=== PATIENT | female | born 1955 | race Caucasian/White ===

== ENCOUNTER 2024-04-19 17:44 | Inpatient (IN) | payer MEDICAID, OTHER ==
[~2024-04-19] VITALS: Ht 165.1 cm; Wt 67.2 kg
[~2024-04-19 17:44] MED LIST: ACET160S PO; ALBU6.7H15 INH; ANAS1TAB49 PO; APIX5TAB MT; ASCO500C18 MT; ASPI-1497 PO; ATOR40TA70 MT; CARV3.1242 MT; DOCU-138 MT; DOCU-155 MT; FURO40TA5 MT; GABA-534 MT; GLUC1KIT3 SQ; INSU100V51; IPRA5POW MC; MULT-379 MT; OMEP20CA14 MT; POVI30SO OP; SITA50TA3 MT
[2024-04-19] MEDS ORDERED: CEFEPIME 1GM IN DEXT 5% 50ML IV ONE (18:00)
[2024-04-19] MEDS ORDERED: VANCOMYCIN 1,250 MG in DEXT 5% WATER 250 ML IV SCH (18:00)
[2024-04-19 18:21] LABS: BASOPHILS % 0.1 % (0.0-2.0); DIFFERENTIAL COMMENT 0; EOSINOPHILS % 3.1 % (0.0-5.0); LYMPHOCYTES % 8.1 % (20.0-50.0); MEAN CORPUSCULAR HEMOGLOBIN 28.9 pg (28.0-32.0); MEAN CORPUSCULAR HGB CONC 30.8 g/dL (31.0-37.0); MEAN CORPUSCULAR VOLUME 93.8 fL (81.0-99.0); MEAN PLATELET VOLUME 8.6 fl (7.4-10.4); MONOCYTES % 4.9 % (2.0-8.0); NEUTROPHILS % 83.8 % (40.0-76.0); PLATELET 360 x1000/uL (130-400); RED BLOOD CELL COUNT 1.57 mill/uL (4.2-5.4); RED CELL DISTRIBUTION WIDTH 15.8 % (11.6-14.6); WHITE BLOOD COUNT 16.5 x1000/uL (4.5-11.0)
[2024-04-19] MEDS: CEFEPIME 1GM/50ML 50 ML IV NR (18:23)
[2024-04-19 18:26] LABS: HEMOGLOBIN. 4.5 g/dL (12.0-16.0); POTASSIUM 3.7 mEq/L (3.5-5.1)
[2024-04-19 18:27] LABS: CALCIUM 8.2 mg/dL (8.7-10.4); HEMATOCRIT. 14.7 % (36.0-48.0)
[2024-04-19] MEDS: SODIUM CHLORIDE 0.9% 1000ML BAG (SEPSIS BOLUS) IV ONE (18:29)
[2024-04-19 18:31] LABS: PROTHROMBIN TIME 11.6 sec (9.6-11.0)
[2024-04-19 18:33] VITALS: PULSE 118; RESP 24; O2SAT 98
[2024-04-19 18:36] LABS: CREATININE 2.5 mg/dL (0.6-1.0)
[2024-04-19] MEDS: NOREPINEPHRINE 8MG/250ML PMX 250 ML IV ONE (19:14)
[2024-04-19] MEDS: VANCOMYCIN 1.25GM PMX (XELLIA) 250 ML IV NR (19:14)
[2024-04-19 20:06] VITALS: PULSE 119; RESP 20; O2SAT 100
[2024-04-19 22:15] VITALS: PULSE 120; RESP 20; O2SAT 100
[2024-04-20] VITALS (108 sets, daily range): BP systolic 83–154; BP diastolic 37–86; PULSE 101–129; RESP 0–27; TEMP 36.61404–37.05852; O2SAT 10–100
[2024-04-20 02:19] LABS: BG BASE EXCESS -3.7 mmol/L (-2.0-2.0); BG DEOXYHEMOGLOBIN 0.6 % (0.0-5.0); BG FRACTION INSPIRED OXYGEN 40; BG HCO3 ACT 20.4 mmol/L (22.0-26.0); BG METHEMOGLOBIN 0.3 % (0.0-1.5); BG OXYGEN SATURATION 99.4 % (92.0-98.5); BG OXYHEMOGLOBIN 98.1 % (94.0-97.0); BG PCO2 32.1 mmHg (35.0-45.0); BG PO2 138.1 mmHg (75.0-100.0); BG SAMPLE SITE LEFT RADIAL; BG TOTAL HEMOGLOBIN 7.1 g/dL (12.0-18.0); BG TOTAL RESPIRATORY RATE 21 b/min; BG VENT MODE VENT - AC
[2024-04-20] MEDS ORDERED: DEXTROSE 50% WATER 50ML SYRINGE IV PRN ×2 (05:30→15:30)
[2024-04-20] MEDS: BLOOD SUGAR DIAGNOSTIC STRIP TEST SCH ×2 (06:46→17:27)
[2024-04-20] MEDS: DEXT 5%/0.9% NACL 1,000 ML IV SCH ×2 (06:50→18:42)
[2024-04-20] MEDS: PIPERACILLIN/TAZO 3.375G/50ML 50 ML IV SCH (06:50)
[2024-04-20] MEDS: INSULIN LISPRO 100 UNITS/ML SUBCUT SCH ×2 (07:00→18:18)
[2024-04-20] MEDS: PANTOPRAZOLE SODIUM 40 MG/VIAL IV SCH (08:23)
[2024-04-20 09:15] LABS: CLARITY URINE CLOUDY (CLEAR); COLOR URINE YELLOW (YELLOW); GLUCOSE URINE 1+ (NEGATIVE); KETONES URINE 1+ (NEGATIVE); LEUKOCYTE ESTERASE URINE 3+ (NEGATIVE); NITRITE URINE NEGATIVE (NEGATIVE); OCCULT BLOOD URINE 2+ (NEGATIVE); PH URINE 7.5 (4.5-8.0); PROTEIN URINE 2+ (NEGATIVE); SPECIFIC GRAVITY URINE 1.014 (1.005-1.030); UROBILINOGEN URINE 0.2 E.U./dL (0.2-1.0)
[2024-04-20 09:23] LABS: WBC URINE 50-100 /hpf (0-2)
[2024-04-20 09:24] LABS: BACTERIA URINE 2+; YEAST URINE NONE SEEN
[2024-04-20 09:26] LABS: SQUAMOUS EPITHELIAL CELL URINE NONE SEEN /lpf (RARE/1+)
[2024-04-20 10:12] LABS: HEMATOCRIT 28.3 % (36.0-48.0); HEMOGLOBIN 9.2 g/dL (12.0-16.0); MEAN CORPUSCULAR HEMOGLOBIN 29.4 pg (28.0-32.0); MEAN CORPUSCULAR HGB CONC 32.4 g/dL (31.0-37.0); MEAN CORPUSCULAR VOLUME 90.9 fL (81.0-99.0); PLATELET 356 x1000/uL (130-400); RED BLOOD CELL COUNT 3.11 mill/uL (4.2-5.4); RED CELL DISTRIBUTION WIDTH 16.3 % (11.6-14.6); WHITE BLOOD COUNT 16.1 x1000/uL (4.5-11.0)
[2024-04-20 10:21] LABS: POTASSIUM 3.4 mEq/L (3.5-5.1)
[2024-04-20 10:23] LABS: CALCIUM 8.3 mg/dL (8.7-10.4)
[2024-04-20 10:27] LABS: CREATININE 2.3 mg/dL (0.6-1.0)
[2024-04-20 10:29] LABS: ALBUMIN 2.8 g/dL (3.2-4.8)
[2024-04-20] MEDS: NOREPINEPHRINE 8MG/250ML PMX 250 ML IV PRN (10:34)
[2024-04-20] MEDS: CHLORHEXIDINE GLUCONATE 4% EXTERNAL USE TOP SCH (13:38)
[2024-04-20 16:11] LABS: IRON 45 ug/dL (50-170)
[2024-04-20 16:13] LABS: TOTAL IRON BINDING CAPACITY 149 ug/dl (250-425)
[2024-04-20] MEDS ORDERED: INSULIN LISPRO 100 UNITS/ML SUBCUT SCH (18:00)
[2024-04-21] VITALS (99 sets, daily range): BP systolic 87–135; BP diastolic 39–88; PULSE 106–136; RESP 12–25; TEMP 36.72516–37.44744; O2SAT 97–100
[2024-04-21 05:33] LABS: CALCIUM 8.2 mg/dL (8.7-10.4)
[2024-04-21 05:46] LABS: POTASSIUM 2.4 mEq/L (3.5-5.1)
[2024-04-21] MEDS ORDERED: KCL 20MEQ/100ML PREMIX 100 ML IV ONE ×2 (06:15)
[2024-04-21] MEDS ORDERED: POTASSIUM CHLORIDE 20 MEQ in DEXT 5% WATER 90 ML IV ONE (06:15)
[2024-04-21] MEDS: POTASSIUM CHLORIDE 60 MEQ in DEXT 5% WATER 470 ML IV SCH (07:04)
[2024-04-21] MEDS: MAGNESIUM 1 G PREMIX 100 ML IV NR (11:51)
[2024-04-21] MEDS: DIPHENHYDRAMINE 50MG/ML VIAL IV NR (16:26)
[2024-04-21] MEDS: INSULIN LISPRO 100 UNITS/ML SUBCUT SCH (16:28)
[2024-04-21 16:58] LABS: CALCIUM 7.8 mg/dL (8.7-10.4)
[2024-04-21 17:03] LABS: CREATININE 1.7 mg/dL (0.6-1.0)
[2024-04-21 17:08] LABS: FERRITIN 1156 ng/mL (10-291); FOLIC ACID (FOLATE) SERUM 12.25 ng/mL (>5.38)
[2024-04-21 17:09] LABS: VITAMIN B12 SERUM 1413 pg/mL (211-911)
[2024-04-21] MEDS: KCL 20MEQ/100ML PREMIX 100 ML IV SCH (17:21)
[2024-04-21] MEDS: VANCOMYCIN 750MG/150ML (BAXTER) IV NR (20:33)
[2024-04-21] MEDS ORDERED: ZINC OXIDE 20% OINT 30GM TOP PRN (21:00)
[2024-04-21] MEDS: ACETAMINOPHEN 650MG/20.3ML UDC PO PRN (21:21)
[2024-04-21] MEDS: INSULIN GLARGINE 100 UNITS/ML SUBCUT SCH (21:54)
[2024-04-22] VITALS (72 sets, daily range): BP systolic 74–123; BP diastolic 32–69; PULSE 112–146; RESP 11–27; TEMP 36.78072–38.3364; O2SAT 98–100
[2024-04-22] MEDS: AZITHROMYCIN 500MG/250ML 250 ML IV NR (00:10)
[2024-04-22 04:51] LABS: HEMATOCRIT. 25.2 % (36.0-48.0); MEAN CORPUSCULAR HEMOGLOBIN 29.3 pg (28.0-32.0); MEAN CORPUSCULAR HGB CONC 31.7 g/dL (31.0-37.0); MEAN CORPUSCULAR VOLUME 92.4 fL (81.0-99.0); MEAN PLATELET VOLUME 7.8 fl (7.4-10.4); PLATELET 375 x1000/uL (130-400); RED BLOOD CELL COUNT 2.73 mill/uL (4.2-5.4); RED CELL DISTRIBUTION WIDTH 17.3 % (11.6-14.6); WHITE BLOOD COUNT 17.1 x1000/uL (4.5-11.0)
[2024-04-22 04:55] LABS: CARBON DIOXIDE 19 mEq/L (21-32); CHLORIDE 122 mEq/L (98-107); POTASSIUM 3.5 mEq/L (3.5-5.1); SODIUM 151 mEq/L (136-145)
[2024-04-22 04:56] LABS: CALCIUM 8.1 mg/dL (8.7-10.4)
[2024-04-22 05:00] LABS: CREATININE 1.6 mg/dL (0.6-1.0); GLUCOSE 235 mg/dL (70-105)
[2024-04-22 05:01] LABS: UREA NITROGEN BLOOD 74 mg/dL (9-23)
[2024-04-22 05:03] LABS: PHOSPHORUS 2.8 mg/dL (2.5-4.9)
[2024-04-22 05:33] LABS: DIFFERENTIAL COMMENT 1
[2024-04-22] MEDS: DEXTROSE 5% WATER 1,000 ML IV SCH (09:29)
[2024-04-22] MEDS: POTASSIUM CHLORIDE 20MEQ/PACKET PO NR ×2 (09:31→18:35)
[2024-04-22 11:26] LABS: ANISOCYTOSIS 1+; PLATELET ESTIMATE NORMAL
[2024-04-22] MEDS: DIGOXIN 500MCG/2ML AMP IV NR (18:35)
[2024-04-22] MEDS: AZITHROMYCIN 500MG/250ML 250 ML IV SCH (20:18)
[2024-04-22] MEDS ORDERED: PHENYLEPHRINE 100 MG in DEXT 5% WATER 240 ML IV PRN (22:00)
[2024-04-22] MEDS ORDERED: CEFEPIME 1GM IN DEXT 5% 50ML IV SCH (23:15)
[2024-04-23] VITALS (55 sets, daily range): BP systolic 95–134; BP diastolic 43–67; PULSE 117–141; RESP 11–28; TEMP 36.55848–37.61412; O2SAT 96–100
[2024-04-23] MEDS: CEFEPIME 1GM/50ML 50 ML IV SCH (00:16)
[2024-04-23 05:44] LABS: POTASSIUM 4.3 mEq/L (3.5-5.1)
[2024-04-23 05:45] LABS: CALCIUM 8.1 mg/dL (8.7-10.4)
[2024-04-23 05:50] LABS: CREATININE 1.4 mg/dL (0.6-1.0)
[2024-04-23 06:27] LABS: BASOPHILS % 0.4 % (0.0-2.0); EOSINOPHILS % 13.1 % (0.0-5.0); HEMATOCRIT. 24.2 % (36.0-48.0); HEMOGLOBIN. 7.7 g/dL (12.0-16.0); LYMPHOCYTES % 9.6 % (20.0-50.0); MEAN CORPUSCULAR HEMOGLOBIN 29.6 pg (28.0-32.0); MEAN CORPUSCULAR HGB CONC 32.1 g/dL (31.0-37.0); MEAN CORPUSCULAR VOLUME 92.4 fL (81.0-99.0); MEAN PLATELET VOLUME 7.3 fl (7.4-10.4); MONOCYTES % 7.6 % (2.0-8.0); NEUTROPHILS % 69.3 % (40.0-76.0); PLATELET 381 x1000/uL (130-400); RED BLOOD CELL COUNT 2.61 mill/uL (4.2-5.4); RED CELL DISTRIBUTION WIDTH 17.2 % (11.6-14.6); WHITE BLOOD COUNT 14.5 x1000/uL (4.5-11.0)
[2024-04-23] MEDS: FUROSEMIDE 40MG/4ML VIAL IVP SCH (08:19)
[2024-04-23] MEDS: DILTIAZEM HCL 5MG/ML 5ML VIAL IV NR (21:08)
[2024-04-23] MEDS: MICAFUNGIN 100 MG in SODIUM CHLORIDE 0.9% 100 ML IV SCH (22:04)
[2024-04-23] MEDS: CEFEPIME 2GM/100ML 100 ML IV SCH (23:07)
[2024-04-24] VITALS (24 sets, daily range): BP systolic 96–119; BP diastolic 42–66; PULSE 119–139; RESP 13–21; TEMP 36.72516–37.7808; O2SAT 91–100
[2024-04-24] MEDS: DILTIAZEM HCL 30MG TABLET PO SCH
[2024-04-24 06:44] LABS: HEMATOCRIT. 23.8 % (36.0-48.0); HEMOGLOBIN. 7.7 g/dL (12.0-16.0); MEAN CORPUSCULAR HGB CONC 32.2 g/dL (31.0-37.0); MEAN CORPUSCULAR VOLUME 93.2 fL (81.0-99.0); MEAN PLATELET VOLUME 7.8 fl (7.4-10.4); PLATELET 371 x1000/uL (130-400); RED BLOOD CELL COUNT 2.55 mill/uL (4.2-5.4); RED CELL DISTRIBUTION WIDTH 17.2 % (11.6-14.6); WHITE BLOOD COUNT 11.5 x1000/uL (4.5-11.0)
[2024-04-24 06:50] LABS: DIFFERENTIAL COMMENT 1
[2024-04-24 07:03] LABS: CHLORIDE 119 mEq/L (98-107); POTASSIUM 3.8 mEq/L (3.5-5.1); SODIUM 144 mEq/L (136-145)
[2024-04-24 07:04] LABS: CARBON DIOXIDE 20 mEq/L (21-32)
[2024-04-24 07:05] LABS: CALCIUM 8.6 mg/dL (8.7-10.4)
[2024-04-24 07:09] LABS: CREATININE 1.3 mg/dL (0.6-1.0); GLUCOSE 184 mg/dL (70-105); UREA NITROGEN BLOOD 48 mg/dL (9-23)
[2024-04-24] MEDS: DILTIAZEM HCL 5MG/ML 5ML VIAL IV PRN (08:27)
[2024-04-24] MEDS: POTASSIUM CHLORIDE 20MEQ/PACKET PO NR (11:42)
[2024-04-24] MEDS: MAGNESIUM 2 G PREMIX 50 ML IV NR (11:42)
[2024-04-24] MEDS ORDERED: DOXYCYCLINE 100MG/100ML 100 ML IV SCH ×2 (15:00→20:00)
[2024-04-24 17:31] LABS: ANISOCYTOSIS 1+; PLATELET ESTIMATE NORMAL
[2024-04-24] MEDS: PIPERACILLIN/TAZO 3.375G/50ML 50 ML IV SCH (18:27)
[2024-04-24] MEDS: DILTIAZEM HCL 60MG TABLET PO SCH (18:41)
[2024-04-24] MEDS: METOPROLOL TARTRATE 25MG TABLET PO SCH (20:52)
[2024-04-24] MEDS: DOXYCYCLINE 100MG/100ML 100 ML IV SCH (21:04)
[2024-04-25] VITALS (29 sets, daily range): BP systolic 79–122; BP diastolic 28–67; PULSE 91–127; RESP 13–19; TEMP 36.05844–37.83636; O2SAT 98–100
[2024-04-25 07:02] LABS: CHLORIDE 115 mEq/L (98-107); SODIUM 146 mEq/L (136-145)
[2024-04-25 07:03] LABS: CALCIUM 8.5 mg/dL (8.7-10.4); CARBON DIOXIDE 21 mEq/L (21-32)
[2024-04-25 07:08] LABS: CREATININE 1.3 mg/dL (0.6-1.0); GLUCOSE 186 mg/dL (70-105); UREA NITROGEN BLOOD 44 mg/dL (9-23)
[2024-04-25 07:10] LABS: PHOSPHORUS 2.7 mg/dL (2.5-4.9)
[2024-04-25 08:00] LABS: BASOPHILS % 0.6 % (0.0-2.0); DIFFERENTIAL COMMENT 0; EOSINOPHILS % 8.9 % (0.0-5.0); LYMPHOCYTES % 15.3 % (20.0-50.0); MEAN CORPUSCULAR HEMOGLOBIN 30.7 pg (28.0-32.0); MEAN CORPUSCULAR HGB CONC 31.5 g/dL (31.0-37.0); MEAN CORPUSCULAR VOLUME 97.3 fL (81.0-99.0); MEAN PLATELET VOLUME 8.2 fl (7.4-10.4); NEUTROPHILS % 66.2 % (40.0-76.0); PLATELET 195 x1000/uL (130-400); RED CELL DISTRIBUTION WIDTH 17.8 % (11.6-14.6); WHITE BLOOD COUNT 9.8 x1000/uL (4.5-11.0)
[2024-04-25 08:38] LABS: HEMOGLOBIN. 6.8 g/dL (12.0-16.0)
[2024-04-25 08:39] LABS: HEMATOCRIT. 21.4 % (36.0-48.0)
[2024-04-25] MEDS ORDERED: DILT60TA35 PO (10:40)
[2024-04-25] MEDS ORDERED: METO25TA6 PO (10:40)
[2024-04-25] MEDS: DOXYCYCLINE 100MG/100ML 100 ML IV SCH (21:16)
[2024-04-26] VITALS (21 sets, daily range): BP systolic 112–141; BP diastolic 51–67; PULSE 97–117; RESP 15–22; TEMP 36.16956–38.22528; O2SAT 90–100
[2024-04-26 11:20] LABS: BASOPHILS % 0.4 % (0.0-2.0); HEMATOCRIT. 27.6 % (36.0-48.0); HEMOGLOBIN. 8.6 g/dL (12.0-16.0); LYMPHOCYTES % 18.9 % (20.0-50.0); MEAN CORPUSCULAR HEMOGLOBIN 27.5 pg (28.0-32.0); MEAN CORPUSCULAR HGB CONC 31.1 g/dL (31.0-37.0); MEAN CORPUSCULAR VOLUME 88.3 fL (81.0-99.0); MEAN PLATELET VOLUME 7.9 fl (7.4-10.4); MONOCYTES % 9.8 % (2.0-8.0); NEUTROPHILS % 60.9 % (40.0-76.0); PLATELET 333 x1000/uL (130-400); RED BLOOD CELL COUNT 3.12 mill/uL (4.2-5.4); RED CELL DISTRIBUTION WIDTH 22.9 % (11.6-14.6); WHITE BLOOD COUNT 11.3 x1000/uL (4.5-11.0)
[2024-04-26 11:30] LABS: POTASSIUM 3.7 mEq/L (3.5-5.1)
[2024-04-26 11:36] LABS: CREATININE 1.4 mg/dL (0.6-1.0)
[2024-04-26 11:52] LABS: DIFFERENTIAL COMMENT 1
[2024-04-26] MEDS: VANCOMYCIN 250MG/5ML ORAL SYRINGE GT SCH (18:00)
[2024-04-26] MEDS ORDERED: VANCOMYCIN 1000MG/20ML ORAL SOLN GT SCH (18:00)
[2024-04-27] VITALS (24 sets, daily range): BP systolic 109–130; BP diastolic 43–65; PULSE 96–120; RESP 13–21; TEMP 36.6696–37.94748; O2SAT 94–100
[2024-04-28] VITALS (23 sets, daily range): BP systolic 84–132; BP diastolic 37–69; PULSE 86–114; RESP 14–18; TEMP 36.28068–37.66968; O2SAT 98–100
[2024-04-28 07:16] LABS: POTASSIUM 3.8 mEq/L (3.5-5.1)
[2024-04-28 07:22] LABS: CREATININE 1.7 mg/dL (0.6-1.0)
[2024-04-28 07:35] LABS: BASOPHILS % 0.5 % (0.0-2.0); EOSINOPHILS % 6.1 % (0.0-5.0); HEMATOCRIT. 28.2 % (36.0-48.0); HEMOGLOBIN. 9.2 g/dL (12.0-16.0); LYMPHOCYTES % 23.4 % (20.0-50.0); MEAN CORPUSCULAR HGB CONC 32.4 g/dL (31.0-37.0); MEAN CORPUSCULAR VOLUME 86.3 fL (81.0-99.0); MONOCYTES % 8.7 % (2.0-8.0); NEUTROPHILS % 61.3 % (40.0-76.0); PLATELET 364 x1000/uL (130-400); RED BLOOD CELL COUNT 3.27 mill/uL (4.2-5.4); RED CELL DISTRIBUTION WIDTH 21.9 % (11.6-14.6); WHITE BLOOD COUNT 13.6 x1000/uL (4.5-11.0)
[2024-04-28] MEDS: MIDODRINE HCL 5MG TABLET PO SCH (15:15)
[2024-04-28] MEDS: DIPHENOXYLATE/ATROPINE 2.5/0.025MG TABLET PO NR (16:15)
[2024-04-28] MEDS: IPRATROPIUM/ALBUTEROL 0.5-3(2.5)MG/3ML NEB HHN PRN (21:15)
[2024-04-29] VITALS (17 sets, daily range): BP systolic 112–141; BP diastolic 55–85; PULSE 87–109; RESP 14–21; TEMP 36.114–37.89192; O2SAT 97–100
[2024-04-29] MEDS: INSULIN LISPRO 100 UNITS/ML SUBCUT SCH (12:00)
[2024-04-29] MEDS: BLOOD SUGAR DIAGNOSTIC STRIP TEST SCH (12:21)
== END 2024-04-29 18:00 | DRG 720 ==
LOC: ER 17:44 → EDBEDREQTM 21:35 → EDBEDREQ 21:35 → MICUSO 04-20 01:38 → 5EST 04-23 17:50
PROVIDERS: ADMIT Internal Medicine; ATTEND Internal Medicine
PROC: 5A09357 Assistance with Respiratory Ventilation, Less than 24 Consecutive Hours, Continuous Positive Airway Pressure (ICD-10-PCS; principal; 2024-04-19)
PROC: 5A1955Z Respiratory Ventilation, Greater than 96 Consecutive Hours (ICD-10-PCS; 2024-04-20)
PROC: 30243N1 Transfusion of Nonautologous Red Blood Cells into Central Vein, Percutaneous Approach (ICD-10-PCS; 2024-04-20)
PROC: 5A09357 Assistance with Respiratory Ventilation, Less than 24 Consecutive Hours, Continuous Positive Airway Pressure (ICD-10-PCS; 2024-04-20)
PROC: 05HM33Z Insertion of Infusion Device into Right Internal Jugular Vein, Percutaneous Approach (ICD-10-PCS; 2024-04-20)
PROC: B543ZZA Ultrasonography of Right Jugular Veins, Guidance (ICD-10-PCS; 2024-04-20)
DX: A41.52 Sepsis due to Pseudomonas (principal); N17.0 Acute kidney failure with tubular necrosis; J96.21 Acute and chronic respiratory failure with hypoxia; R65.21 Severe sepsis with septic shock; J69.0 Pneumonitis due to inhalation of food and vomit; G93.41 Metabolic encephalopathy; J15.1 Pneumonia due to Pseudomonas; Y95 Nosocomial condition; E87.1 Hypo-osmolality and hyponatremia; D63.8 Anemia in other chronic diseases classified elsewhere; I13.0 Hypertensive heart and chronic kidney disease with heart failure and stage 1 through stage 4 chronic kidney disease, or unspecified chronic kidney disease; E87.0 Hyperosmolality and hypernatremia; J96.10 Chronic respiratory failure, unspecified whether with hypoxia or hypercapnia; N18.9 Chronic kidney disease, unspecified; E11.22 Type 2 diabetes mellitus with diabetic chronic kidney disease; E11.51 Type 2 diabetes mellitus with diabetic peripheral angiopathy without gangrene; E11.65 Type 2 diabetes mellitus with hyperglycemia; E87.6 Hypokalemia; I50.22 Chronic systolic (congestive) heart failure; N20.0 Calculus of kidney; Z20.822 Contact with and (suspected) exposure to COVID-19; L89.629 Pressure ulcer of left heel, unspecified stage; L89.619 Pressure ulcer of right heel, unspecified stage; E87.3 Alkalosis; J95.02 Infection of tracheostomy stoma; L03.221 Cellulitis of neck; N26.1 Atrophy of kidney (terminal); N39.0 Urinary tract infection, site not specified; K57.30 Diverticulosis of large intestine without perforation or abscess without bleeding; Y83.8 Other surgical procedures as the cause of abnormal reaction of the patient, or of later complication, without mention of misadventure at the time of the procedure; I48.91 Unspecified atrial fibrillation; K94.22 Gastrostomy infection; L03.311 Cellulitis of abdominal wall; Z99.11 Dependence on respirator [ventilator] status; Z86.73 Personal history of transient ischemic attack (TIA), and cerebral infarction without residual deficits; Z86.718 Personal history of other venous thrombosis and embolism; Z85.3 Personal history of malignant neoplasm of breast; Y92.89 Other specified places as the place of occurrence of the external cause; Z74.01 Bed confinement status
CPT/HCPCS: 36415; 36600; 71045; 74176; 80048; 80202; 81003; 82040; 82270; 82375; 82607; 82728; 82746; 82805; 82962; 83036; 83540; 83550; 83605; 83735; 84100; 84145; 85025; 85027; 85044; 86850; 86900; 86920; 87070; 87077; 87106; 87186; 87426; 93005; 93306; 94003; 99291; A6261; J0456; J0692; J1160; J1200; J1815; J1940; J2248; J2470; J2543; J3370; J3475; J3480; J3490; J7030; J7042; J7050; J7060; J7070; P9016